=== PATIENT | female | born 1945 | race Caucasian/White ===

== ENCOUNTER 2018-02-09 06:32 | Day surgery (SDC) | payer BC, MEDICARE ==
[2018-02-09] MEDS ORDERED: Sodium Chloride 0.9% 10 ML Syringe FLUSH PRN (06:45)
[2018-02-09] MEDS ORDERED: Lactated Ringers 1,000 ML IV SCH (06:45)
[2018-02-09] MEDS ORDERED: Propofol 200 MG/20 ML SDV IV ONE (08:00)
[2018-02-09] MEDS ORDERED: Midazolam 1 MG/ML 2 ML SDV IV ONE (08:00)
[2018-02-09] MEDS ORDERED: Simethicone Drops 40 MG/0.6 ML 30 ML Bottle ONE (08:02)
--- NOTE | 2018-02-09 08:19 | PCM.OPNOTE ---
- General Post-Op/Procedure Note Date of Surgery/Procedure: 02/09/18 Operative Procedure(s): c scope Findings: diverticulosis distal transverse colon to sigmoid colon Pre Op Diagnosis: hx of diverticulitis Post-Op Diagnosis: diverticulosis distal transverse colon to sigmoid colon Anesthesia Technique: MAC Primary Surgeon: Ramiro Dyson Anesthesia Provider: Tori Wooten Pathology: none Complications: none Condition: Good Free Text/Narrative:: see dictation
--- NOTE | 2018-02-09 09:26 | OR ---
DATE OF OPERATION: 02/09/2018 SURGEON: Ramiro Dyson MD PROCEDURE PERFORMED: Colonoscopy. PREOPERATIVE DIAGNOSIS: History of diverticulitis. POSTOPERATIVE DIAGNOSIS: Diverticulosis of the transverse, descending, sigmoid colons. INDICATIONS FOR PROCEDURE: This is a 72-year-old white female who has had recurrent attacks of diverticulitis. She was referred for a followup colonoscopy, as she has had 2 recently in the past 6 months. She was offered and accepted scope. DESCRIPTION OF PROCEDURE: After an excellent IV sedation was administered, digital rectal exam was performed. No marked abnormality was noted. Flexible colonoscope was inserted and advanced to the cecum without difficulty. The prep was excellent. The following findings were noted. Ascending colon, unremarkable. Transverse colon, at the distal transverse colon, scattered diverticula. Descending colon, scattered diverticula. Sigmoid, moderate sigmoid diverticulosis. Rectum and anus, unremarkable. Colon was deflated. The scope was removed. The patient tolerated the procedure well. /[id number] /KAREN
== END 2018-02-09 09:24 | disposition home or self-care (01) ==
LOC: FB.SDS 06:32
PROVIDERS: ATTEND Surgery
DX: K57.30 Diverticulosis of large intestine without perforation or abscess without bleeding (principal); K21.9 Gastro-esophageal reflux disease without esophagitis; M12.9 Arthropathy, unspecified; E78.4 Other hyperlipidemia; Z79.2 Long term (current) use of antibiotics; Z79.899 Other long term (current) drug therapy; Z88.5 Allergy status to narcotic agent
CPT/HCPCS: 45378; A9270; J2250; J2704; J7120

== ENCOUNTER 2022-12-02 14:12 | Emergency (ER) | payer MEDICARE, OTHER ==
[2022-12-02 15:15] LABS: ESTIMATED GFR 66 mL/min (>60)
[2022-12-02] MEDS ORDERED: Sodium Chloride 0.9% 10 ML Syringe FLUSH PRN (15:33)
[2022-12-02] MEDS ORDERED: Iopamidol 755 Mg/ML 100 ML Bottle IV ONE (16:20)
== END 2022-12-02 17:28 | disposition home or self-care (01) ==
LOC: FB.ED 14:12
DX: R07.89 Other chest pain (principal); R51.9 Headache, unspecified; R91.1 Solitary pulmonary nodule; J45.909 Unspecified asthma, uncomplicated; Z88.5 Allergy status to narcotic agent
CPT/HCPCS: 36415; 71045; 71275; 80053; 83880; 84484; 85025; 85379; 85610; 85730; 93005; 99285; Q9967; 93010; 99283